=== PATIENT | male | born 1980 | race African-American/Black ===

== ENCOUNTER → 2019-12-28 | Outpatient (CLI) | payer BC ==
--- NOTE | 2019-12-29 11:16 | RAD ---
EXAM DESCRIPTION: Chest,2 Views CLINICAL HISTORY: 39 years Male, RECTAL ABSCESS COMPARISON: None Available TECHNIQUE: PA/lateral FINDINGS: There is no cardiac or pulmonary abnormality. The lungs are clear. There is no effusion. IMPRESSION: 1. Normal two-view chest. Electronically signed by: Ethan Victor MD 12/29/2019 11:14 AM [facility]
== END ==
LOC: RAD 12:35
PROVIDERS: ATTEND Surgery
DX: K61.1 Rectal abscess (principal)

== ENCOUNTER 2019-12-29 05:08 | Day surgery (SDC) | payer BC ==
[2019-12-29] MEDS ORDERED: PHENYLEPHRINE INJ 1ML 10 MG/ML VIAL ONE (07:00)
[2019-12-29] MEDS ORDERED: ePHEDrine SULF 50 MG/ML ONE (07:00)
[2019-12-29] MEDS ORDERED: MAGNESIUM SULFATE INJ 1 GM/2 ML VIAL ONE (07:00)
[2019-12-29] MEDS ORDERED: PROPOFOL 200 MG/20 ML VIAL IV ONE (07:00)
[2019-12-29] MEDS ORDERED: METOCLOPRAMIDE HCL INJ 10 MG/2 ML VIAL ONE (07:00)
[2019-12-29] MEDS ORDERED: BUPIVACAINE 0.5% W/EPI 30 ML VIAL INJ ONE ×2 (11:34→11:37)
[2019-12-29] MEDS: LACTATED RINGERS 1,000 ML ONE ×2 (11:53→12:48)
[2019-12-29] MEDS ORDERED: KETAMINE HCL 100 MG/ML VIAL ONE (12:03)
[2019-12-29] MEDS ORDERED: MIDAZOLAM INJ 2 MG/2 ML VIAL ONE (12:03)
[2019-12-29] MEDS ORDERED: DEXMEDETOMIDINE HCL 200 MCG/2 ML INJ IV ONE (12:03)
[2019-12-29] MEDS ORDERED: fentaNYL CITRATE INJ 50 MCG/ML 5 ML AMP ONE (12:04)
[2019-12-29] MEDS ORDERED: HYDROcodone 5MG/APAP 325MG 1 EA TAB PO ONE (12:05)
[2019-12-29] MEDS ORDERED: SUCCINYLCHOLINE CHLORIDE 200 MG/10 ML VIAL ONE (12:18)
[2019-12-29] MEDS ORDERED: BUPIVACAINE LIPOSOME 13.3 MG/ML VIAL INJ ONE (12:36)
[2019-12-29] MEDS ORDERED: FAMOTIDINE INJ 10 MG/ML VIAL IV ONE (12:54)
[2019-12-29] MEDS ORDERED: KETOROLAC TROMETHAMINE INJ 30 MG/ML VIAL ONE (13:04)
[2019-12-29] MEDS ORDERED: HYDROmorphone HCL INJ 2 MG/ML VIAL ONE (13:16)
--- NOTE | 2019-12-29 13:20 | OP ---
DATE OF PROCEDURE: 12/29/19 PREOPERATIVE DIAGNOSIS: 1. Perirectal abscess. POSTOPERATIVE DIAGNOSIS: 1. Perirectal abscess. PROCEDURE: 1. Incision and drainage of perirectal abscess. 2. Pudendal nerve block for postoperative pain control. SURGEON: Michael Christie MD ANESTHESIA: General. INDICATION: As stated. PROCEDURE: In lithotomy position, general anesthesia was induced. The patient had obvious induration in the right posterior position, a little bit bigger from yesterday. It was also draining from the inside a little bit of purulence. An elliptical incision was made far from the anus and entered the abscess cavity and drained the pus. I used my finger to probe the area. The area did not go up to the perirectal space. There did not seem to be any additional extension. The cavity was about 4x4 cm. It was completely drained and irrigated. There was some oozing that was controlled with cautery. It was then packed. He was awakened and taken to Recovery to be discharged. #[id number] [facility]
[2019-12-29] MEDS ORDERED: HYDROcodone 5MG/APAP 325MG 1 EA TAB ONE (14:02)
[2019-12-29 15:01] VITALS: BP 120/80; TEMP 98.5; O2SAT 95
== END 2019-12-29 14:35 | disposition home or self-care (01) ==
LOC: AMB 05:08
PROVIDERS: ATTEND Surgery
DX: K61.1 Rectal abscess (principal); G89.18 Other acute postprocedural pain; E11.9 Type 2 diabetes mellitus without complications; I10 Essential (primary) hypertension; F17.200 Nicotine dependence, unspecified, uncomplicated; E66.9 Obesity, unspecified; Z68.42 Body mass index [BMI] 45.0-49.9, adult; Z79.84 Long term (current) use of oral hypoglycemic drugs; Z79.899 Other long term (current) drug therapy
CPT/HCPCS: 00902; 36416; 46040; 64430; 82948; J0330; J1170; J1885; J2250; J3010; J7120